=== PATIENT | male | born 1990 | race Caucasian/White ===

== ENCOUNTER 2016-08-06 19:20 | Emergency (ER) | payer OTHER ==
--- NOTE | 2016-08-07 01:32 | ED ORDER SUMMARY ---
..... Patient: DAVINA BENOIT OrderSheet [facility] VisitID: [id number] [place] [address] 26y, M Registration Date/Time: 08/06/2016 ORDER SHEET Weight: 77.1 kg (stated) Allergies: Penicillin, Amoxicillin, Sulfa Antibiotics GENERAL ORDERS: CBC w Diff Urgent (19:51 08/06/2016 Fransisca España) (Ack 19:52 Ernesto [facility] Health Insurance Adjuster) (20:21 DDavis R.N.) CMP Urgent (19:51 08/06/2016 Fransisca [place]aña) (Ack 19:52 Ernesto [facility] Health Insurance Adjuster) (20:21 DDavis R.N.) UA-Culture if indicated Urgent (19:51 08/06/2016 Fransisca [place]) (Ack 19:52 Ernesto [facility] Health Insurance Adjuster) (20:21 DDavis R.N.) Amylase Urgent (19:51 08/06/2016 Fransisca [place]) (Ack 19:52 Ernesto [facility] Health Insurance Adjuster) (20:21 DDavis R.N.) Lipase Urgent (19:51 08/06/2016 Fransisca [place]) (Ack 19:52 Ernesto [facility] Health Insurance Adjuster) (20:21 DDavis R.N.) Urine Drug Screen Urgent (19:51 08/06/2016 Fransisca [place]) (Ack 19:52 Ernesto ER Health Insurance Adjuster) (20:21 DDavis R.N.) Ethyl Alcohol Urgent (19:51 08/06/2016 Fransisca [place]) (Ack 19:52 Ernesto [facility] Health Insurance Adjuster) (20:21 DDavis R.N.) MEDICATION ORDERS: GI Cocktail WHITE PO 30 mL with Lidocaine Viscous Mouth/Throat 15 mL, Maalox Plus Oral 15 mL (NOW) (21:19 08/06/2016 Fransisca [place]) (21:22 DDavis R.N.) IV FLUIDS: IV NS : initial bolus none -, then 1000 mL/hr for X1 (NOW) (19:50 08/06/2016 Fransisca [place]) (Ack 19:52 Mike RShahidN.) (20:20 DDavis R.N.) Zofran IV 4 mg (NOW) (19:50 08/06/2016 Fransisca [place]) (Ack 19:52 Mike Fleming.N.) (20:20 DDscott R.N.) Famotidine IV 20 mg/50mL (NOW) (19:51 08/06/2016 Fransisca Esp[place]) (Ack 19:52 Mike Fleming.N.) (20:21 Adarsh R.N.) ORDER SHEET NOTES: [Electronically signed by Simon Torrez R.N. (01:52 08/07/2016)] [Electronically signed by Chda Ambrocio MD (21:59 08/07/2016)] [Electronically locked/signed by Simon Torrez R.N. (:52 08/07/2016)]
--- NOTE | 2016-08-07 01:32 | ED CLINICAL REPORT ---
Clinical Report - Physicians/Mid Levels [facility] [address] [place] [address] 08/06/2016 19:21 Patient: DAVINA BENOIT Time Seen: 19:27; initial patient contact. Arrived- By private vehicle. Historian- patient. HISTORY OF PRESENT ILLNESS Chief Complaint: ABDOMINAL PAIN. This started today and is still present and worsening. It was abrupt in onset and has been constant. At its maximum, severity described as moderate. When seen in the E.D., severity described as moderate. Modifying factors. Not worsened by anything. Not relieved by anything. No radiation. It is described as located in the epigastric area. The patient has had nausea, loss of appetite, vomiting and diarrhea. Similar symptoms previously: None. Recent medical care: Not recently seen/assessed. REVIEW OF SYSTEMS No constipation, black stools, bloody stools, fever or chills. All systems otherwise negative, except as recorded above. PAST HISTORY Hepatitis. Surgeries: No history of previous surgery. Additional Surgeries: no known surgeries. Medications: None. Allergies: Amoxicillin. Penicillin. Sulfa Antibiotics. SOCIAL HISTORY Current every day smoker. Occasional alcohol use. History of heavy IV drug use: heroin, methamphetamines. ADDITIONAL NOTES The nursing notes have been reviewed. PHYSICAL EXAM Vital Signs: 08/06/2016 19:27 BP: 130/79. HR: 119. RR: 24. O2 saturation: 100%. Temp: 98 F. Pain level now: 9/10. Have been reviewed. Blood pressure normal. Tachycardic. Tachypneic. Temperature normal. Appearance: Alert. Oriented X3. Appears to be in pain. Eyes: Eyes normal inspection. ENT: Dry mucous membranes present. CVS: Tachycardia. Heart sounds normal. Rhythm normal. Respiratory: No respiratory distress. Breath sounds normal. Abdomen: Soft. Moderate tenderness in the epigastric area with guarding present. No rebound tenderness or Gutierrez's sign present. Bowel sounds normal. No organomegaly. No mass. Back: Normal inspection. Skin: Skin warm and dry. Normal skin color. No rash. Extremities: No lower extremity edema. Neuro: Oriented X 3. LABS, X-RAYS, AND EKG Laboratory Tests: UA-Culture if indicated: (DIANNE: 08/06/2016 20:08) ( [facility] [place] 08/06/2016 20:37) Final results Test Result Flag Units (Reference) URINE COLOR YELLOW URINE APPEARANCE CLEAR URINE GLUCOSE NEGATIVE (NEGATIVE) URINE BILIRUBIN NEGATIVE (NEGATIVE) URINE KETONE NEGATIVE (NEGATIVE) URINE SPECIFIC GRAVITY 1.020 (1.010-1.030) URINE PH 6.0 (5.0-8.0) URINE PROTEIN NEGATIVE (NEGATIVE) URINE UROBILINOGEN >=8.0 EU/dL (0.2-1.0) URINE NITRITE NEGATIVE (NEGATIVE) URINE BLOOD NEGATIVE (NEGATIVE) URINE LEUK ESTERASE NEGATIVE (NEGATIVE) URINE RBC NONE SEEN rbc/hpf (0-1) URINE WBC RARE wbc/hpf (0-1) URINE EPITHELIAL CELLS RARE EPI/hpf (0-5) URINE BACTERIA NONE SEEN (NONE SEEN) URINE COMMENT CULT NOT INDICATED URINE CULTURES ARE SET-UP BASED ON THE FOLLOWING CRITERIA:POSITIVE NITRITEPOSITIVE LEUKOCYTE ESTERASEGREATER THAN 10 WHITE BLOOD CELLSMODERATE (2+) OR GREATER BACTERIA CBC w Diff: (DIANNE: 08/06/2016 20:08) ( [facility] 08/06/2016 20:30) Final results Test Result Flag Units (Reference) WHITE BLOOD COUNT 8.1 K/uL (4.5-11.5) RED BLOOD COUNT 4.64 M/uL (4.50-5.90) HEMOGLOBIN 14.5 gm/dL (13.5-17.5) HEMATOCRIT 41.2 % (41.0-53.0) MEAN CELL VOLUME 89 fL (80-100) MEAN CORPUSCULAR HGB 31 pg (26-34) MEAN CORPUSCULAR HGB CONC 35 g/dL (31-37) RED CELL DISTRIBUTION WIDTH 12.7 % (11.6-14.8) PLATELET COUNT 240 K/uL (150-400) NEUTROPHIL % 60.3 % (50-75) LYMPH % 28.9 % (25-40) MONO % 9.1 % (3-14) EOSINOPHIL % 1.5 % (0-4) BASOPHIL % 0.2 % (0-2) Ethyl Alcohol: (DIANNE: 08/06/2016 20:08) ( [facility] 08/06/2016 20:54) Final results Test Result Flag Units (Reference) ETHYL ALCOHOL <3 L mg/dL (3-10) Urine Drug Screen: (DIANNE: 08/06/2016 20:08) ( [facility] [place] 08/06/2016 21:09) Final results Test Result Flag Units (Reference) AMPHETAMINE/METHAMPHETAMINE POSITIVE H (NEGATIVE) BARBITURATE NEGATIVE (NEGATIVE) BENZODIAZEPINE NEGATIVE (NEGATIVE) CANNABINOID NEGATIVE (NEGATIVE) COCAINE NEGATIVE (NEGATIVE) ECSTASY NEGATIVE (NEGATIVE) METHADONE NEGATIVE (NEGATIVE) OPIATE POSITIVE H (NEGATIVE) The urine drug screen is a qualitative screening test fordrug overdose and abuse. All screen results should beconsidered as presumptive.Drugs screened for are as follows:BenzodiazepinesCocaineAmphetamines/MetamphetaminesTHC (Tetrahydrocannabinol)OpiatesBarbituratesEcstasyMethadonePositive results are unconfirmed. For confirmation, notifythe lab for the specimen to be sent to the reference lab.All confirmations must be performed by a differentmethodology.The ingestion of natural herbal and plant productscontaining Ephedra/Ephedra metabolites can produce in urineone or more substances capable of cross reacting withamphetamine/methamphetamine immunoassays. These testsprovide a preliminary result only. A more specificalternative chemical method must be used to obtain aconfirmed analytical result. CMP: (DIANNE: 08/06/2016 20:08) ( [facility] [place] 08/06/2016 21:09) Final results Test Result Flag Units (Reference) GLUCOSE 114 H mg/dL (70-110) BUN 22 H mg/dL (7-18) CREATININE 1.6 H mg/dL (0.6-1.3) Estimated GFR 56.26 mL/min Estimated GFR- >60 mL/min Note: Persistent reduction over 3 months in eGFR<60 mL/min/1.73 m2 defines CKD. Patients with eGFR values>=60 mL/min/1.73 m2 may also have CKD if evidence ofpersistent proteinuria. Additional information may be foundat www.kidney.org. SODIUM 143 mmol/L (136-145) POTASSIUM 3.6 mmol/L (3.5-5.1) CHLORIDE 107 mmol/L (98-107) CARBON DIOXIDE 27 mmol/L (21-32) CALCIUM 8.9 mg/dL (8.5-10.1) TOTAL PROTEIN 7.4 g/dL (6.4-8.2) ALBUMIN 3.9 g/dL (3.3-5.0) BILIRUBIN, TOTAL 1.1 H mg/dL (0.0-1.0) ALKALINE PHOSPHATASE 82 U/L (46-116) AST (SGOT) 51 H U/L (15-37) ALT (SGPT) 75 U/L (12-78) LIPASE 132 U/L (73-393) AMYLASE 42 U/L (25-115) . PROGRESS AND PROCEDURES Course of Care: Physical exam findings are improved. Symptoms better. Zofran 4 mg IVP given. Famotidine 20mg IVPB given. 01:30 08/07/16. Dr. Bautista and I discussed the patient's history and examination findings and the results of his studies at change of shift. I subsequently reviewed the patient's history with him and examined him and my findings were consistent with those noted by Dr. Bautista. I subsequently discussed the case with the mental health team. We spoke with the patient together as well. He currently denies any suicidal ideation. He does state that he is discouraged as that every time he departs rehabilitation for heroin he start using again. He has resources in [place] and hopes to be placed in a Suboxone program there. He would like to be discharged. - MW. Patient/family counseled. Old medical records ordered. Old records unavailable. Disposition: Discharged. Condition: stable. CLINICAL IMPRESSION Gastroenteritis. Depression. Substance abuse- heroin, methamphetamines. INSTRUCTIONS Drink plenty of fluids. Warnings: Further evaluation is necessary. GENERAL WARNINGS: Return or contact your physician immediately if your condition worsens or changes unexpectedly, if not improving as expected, or if other problems arise. Follow-up: Follow up with your doctor tomorrow. Call for the next available appointment. Understanding of the discharge instructions verbalized by patient. (Electronically signed by Chad Ambrocio MD 08/07/2016 21:59)
--- NOTE | 2016-08-07 01:32 | ED CLINICAL REPORT ---
Clinical Report - Physicians/Mid Levels [facility] [address] [place] [address] 08/06/2016 19:21 Patient: DAVINA BENOIT Time Seen: 19:27; initial patient contact. Arrived- By private vehicle. Historian- patient. HISTORY OF PRESENT ILLNESS Chief Complaint: ABDOMINAL PAIN. This started today and is still present and worsening. It was abrupt in onset and has been constant. At its maximum, severity described as moderate. When seen in the E.D., severity described as moderate. Modifying factors. Not worsened by anything. Not relieved by anything. No radiation. It is described as located in the epigastric area. The patient has had nausea, loss of appetite, vomiting and diarrhea. Similar symptoms previously: None. Recent medical care: Not recently seen/assessed. REVIEW OF SYSTEMS No constipation, black stools, bloody stools, fever or chills. All systems otherwise negative, except as recorded above. PAST HISTORY Hepatitis. Surgeries: No history of previous surgery. Additional Surgeries: no known surgeries. Medications: None. Allergies: Amoxicillin. Penicillin. Sulfa Antibiotics. SOCIAL HISTORY Current every day smoker. Occasional alcohol use. History of heavy IV drug use: heroin, methamphetamines. ADDITIONAL NOTES The nursing notes have been reviewed. PHYSICAL EXAM Vital Signs: 08/06/2016 19:27 BP: 130/79. HR: 119. RR: 24. O2 saturation: 100%. Temp: 98 F. Pain level now: 9/10. Have been reviewed. Blood pressure normal. Tachycardic. Tachypneic. Temperature normal. Appearance: Alert. Oriented X3. Appears to be in pain. Eyes: Eyes normal inspection. ENT: Dry mucous membranes present. CVS: Tachycardia. Heart sounds normal. Rhythm normal. Respiratory: No respiratory distress. Breath sounds normal. Abdomen: Soft. Moderate tenderness in the epigastric area with guarding present. No rebound tenderness or Gutierrez's sign present. Bowel sounds normal. No organomegaly. No mass. Back: Normal inspection. Skin: Skin warm and dry. Normal skin color. No rash. Extremities: No lower extremity edema. Neuro: Oriented X 3. LABS, X-RAYS, AND EKG Laboratory Tests: UA-Culture if indicated: (DIANNE: 08/06/2016 20:08) ( [facility] [place]/06[place] 20:37) Final results Test Result Flag Units (Reference) URINE COLOR YELLOW URINE APPEARANCE CLEAR URINE GLUCOSE NEGATIVE (NEGATIVE) URINE BILIRUBIN NEGATIVE (NEGATIVE) URINE KETONE NEGATIVE (NEGATIVE) URINE SPECIFIC GRAVITY 1.020 (1.010-1.030) URINE PH 6.0 (5.0-8.0) URINE PROTEIN NEGATIVE (NEGATIVE) URINE UROBILINOGEN >=8.0 EU/dL (0.2-1.0) URINE NITRITE NEGATIVE (NEGATIVE) URINE BLOOD NEGATIVE (NEGATIVE) URINE LEUK ESTERASE NEGATIVE (NEGATIVE) URINE RBC NONE SEEN rbc/hpf (0-1) URINE WBC RARE wbc/hpf (0-1) URINE EPITHELIAL CELLS RARE EPI/hpf (0-5) URINE BACTERIA NONE SEEN (NONE SEEN) URINE COMMENT CULT NOT INDICATED URINE CULTURES ARE SET-UP BASED ON THE FOLLOWING CRITERIA:POSITIVE NITRITEPOSITIVE LEUKOCYTE ESTERASEGREATER THAN 10 WHITE BLOOD CELLSMODERATE (2+) OR GREATER BACTERIA CBC w Diff: (DIANNE: 08/06/2016 20:08) ( [facility] 08/06/2016 20:30) Final results Test Result Flag Units (Reference) WHITE BLOOD COUNT 8.1 K/uL (4.5-11.5) RED BLOOD COUNT 4.64 M/uL (4.50-5.90) HEMOGLOBIN 14.5 gm/dL (13.5-17.5) HEMATOCRIT 41.2 % (41.0-53.0) MEAN CELL VOLUME 89 fL (80-100) MEAN CORPUSCULAR HGB 31 pg (26-34) MEAN CORPUSCULAR HGB CONC 35 g/dL (31-37) RED CELL DISTRIBUTION WIDTH 12.7 % (11.6-14.8) PLATELET COUNT 240 K/uL (150-400) NEUTROPHIL % 60.3 % (50-75) LYMPH % 28.9 % (25-40) MONO % 9.1 % (3-14) EOSINOPHIL % 1.5 % (0-4) BASOPHIL % 0.2 % (0-2) Ethyl Alcohol: (DIANNE: 08/06/2016 20:08) ( [facility] 08/06/2016 20:54) Final results Test Result Flag Units (Reference) ETHYL ALCOHOL <3 L mg/dL (3-10) Urine Drug Screen: (DIANNE: 08/06/2016 20:08) ( [facility] 08/06/2016 21:09) Final results Test Result Flag Units (Reference) AMPHETAMINE/METHAMPHETAMINE POSITIVE H (NEGATIVE) BARBITURATE NEGATIVE (NEGATIVE) BENZODIAZEPINE NEGATIVE (NEGATIVE) CANNABINOID NEGATIVE (NEGATIVE) COCAINE NEGATIVE (NEGATIVE) ECSTASY NEGATIVE (NEGATIVE) METHADONE NEGATIVE (NEGATIVE) OPIATE POSITIVE H (NEGATIVE) The urine drug screen is a qualitative screening test fordrug overdose and abuse. All screen results should beconsidered as presumptive.Drugs screened for are as follows:BenzodiazepinesCocaineAmphetamines/MetamphetaminesTHC (Tetrahydrocannabinol)OpiatesBarbituratesEcstasyMethadonePositive results are unconfirmed. For confirmation, notifythe lab for the specimen to be sent to the reference lab.All confirmations must be performed by a differentmethodology.The ingestion of natural herbal and plant productscontaining Ephedra/Ephedra metabolites can produce in urineone or more substances capable of cross reacting withamphetamine/methamphetamine immunoassays. These testsprovide a preliminary result only. A more specificalternative chemical method must be used to obtain aconfirmed analytical result. CMP: (DIANNE: 08/06/2016 20:08) ( [facility] 08/06/2016 21:09) Final results Test Result Flag Units (Reference) GLUCOSE 114 H mg/dL (70-110) BUN 22 H mg/dL (7-18) CREATININE 1.6 H mg/dL (0.6-1.3) Estimated GFR 56.26 mL/min Estimated GFR- >60 mL/min Note: Persistent reduction over 3 months in eGFR<60 mL/min/1.73 m2 defines CKD. Patients with eGFR values>=60 mL/min/1.73 m2 may also have CKD if evidence ofpersistent proteinuria. Additional information may be foundat www.kidney.org. SODIUM 143 mmol/L (136-145) POTASSIUM 3.6 mmol/L (3.5-5.1) CHLORIDE 107 mmol/L (98-107) CARBON DIOXIDE 27 mmol/L (21-32) CALCIUM 8.9 mg/dL (8.5-10.1) TOTAL PROTEIN 7.4 g/dL (6.4-8.2) ALBUMIN 3.9 g/dL (3.3-5.0) BILIRUBIN, TOTAL 1.1 H mg/dL (0.0-1.0) ALKALINE PHOSPHATASE 82 U/L (46-116) AST (SGOT) 51 H U/L (15-37) ALT (SGPT) 75 U/L (12-78) LIPASE 132 U/L (73-393) AMYLASE 42 U/L (25-115) . PROGRESS AND PROCEDURES Course of Care: Physical exam findings are improved. Symptoms better. Zofran 4 mg IVP given. Famotidine 20mg IVPB given. 01:30 08/07/16. Dr. Bautista and I discussed the patient's history and examination findings and the results of his studies at change of shift. I subsequently reviewed the patient's history with him and examined him and my findings were consistent with those noted by Dr. Bautista. I subsequently discussed the case with the mental health team. We spoke with the patient together as well. He currently denies any suicidal ideation. He does state that he is discouraged as that every time he departs rehabilitation for heroin he start using again. He has resources in [place] and hopes to be placed in a Suboxone program there. He would like to be discharged. - MW. Patient/family counseled. Old medical records ordered. Old records unavailable. Disposition: Discharged. Condition: stable. CLINICAL IMPRESSION Gastroenteritis. Depression. Substance abuse- heroin, methamphetamines. INSTRUCTIONS Drink plenty of fluids. Warnings: Further evaluation is necessary. GENERAL WARNINGS: Return or contact your physician immediately if your condition worsens or changes unexpectedly, if not improving as expected, or if other problems arise. Follow-up: Follow up with your doctor tomorrow. Call for the next available appointment. Understanding of the discharge instructions verbalized by patient. (Electronically signed by Chad Ambrocio MD 08/07/2016 21:59)
--- NOTE | 2016-08-07 01:32 | ED ORDER SUMMARY ---
..... Patient: DAVINA BENOIT OrderSheet [facility] VisitID: [id number] [place] [address] 26y, M Registration Date/Time: 08/06/2016 ORDER SHEET Weight: 77.1 kg (stated) Allergies: Penicillin, Amoxicillin, Sulfa Antibiotics GENERAL ORDERS: CBC w Diff Urgent (19:51 08/06/2016 Fransisca España) (Ack 19:52 Ernesto ER Frame Changer) (20:21 DDavis R.N.) CMP Urgent (19:51 08/06/2016 Fransisca España) (Ack 19:52 Ernesto ER Frame Changer) (20:21 DDavis R.N.) UA-Culture if indicated Urgent (19:51 08/06/2016 Fransisca España) (Ack 19:52 Ernesto ER Frame Changer) (20:21 DDavis R.N.) Amylase Urgent (19:51 08/06/2016 Fransisca España) (Ack 19:52 Ernesto ER Frame Changer) (20:21 DDavis R.N.) Lipase Urgent (19:51 08/06/2016 Fransisca [place]) (Ack 19:52 Ernesto ER Frame Changer) (20:21 DDavis R.N.) Urine Drug Screen Urgent (19:51 08/06/2016 Fransisca Esp[place]) (Ack 19:52 Ernesto ER Frame Changer) (20:21 DDavis R.N.) Ethyl Alcohol Urgent (19:51 08/06/2016 Fransisca España) (Ack 19:52 Ernesto ER Frame Changer) (20:21 DDavis R.N.) MEDICATION ORDERS: GI Cocktail WHITE PO 30 mL with Lidocaine Viscous Mouth/Throat 15 mL, Maalox Plus Oral 15 mL (NOW) (21:19 08/06/2016 Fransisca España) (21:22 DDavis R.N.) IV FLUIDS: IV NS : initial bolus none -, then 1000 mL/hr for X1 (NOW) (19:50 08/06/2016 Fransisca España) (Ack 19:52 Mike RShahidN.) (20:20 DDavis R.N.) Zofran IV 4 mg (NOW) (19:50 08/06/2016 Fransisca España) (Ack 19:52 Mike Fleming.N.) (20:20 DDscott R.N.) Famotidine IV 20 mg/50mL (NOW) (19:51 08/06/2016 Fransisca España) (Ack 19:52 Mike Fleming.N.) (20:21 Adarsh R.N.) ORDER SHEET NOTES: [Electronically signed by Simon Torrez R.N. (01:52 08/07/2016)] [Electronically signed by Chad Ambrocio MD (21:59 08/07/2016)] [Electronically locked/signed by Simon Torrez R.N. (:52 08/07/2016)]
--- NOTE | 2016-08-07 01:32 | ED NURSING NOTES ---
Clinical Report - Nurses [facility] [place] [address] 08/06/2016 19:21 Patient: DAVINA BENOIT TRIAGE Triage time 19:27. Acuity: LEVEL 2. Chief Complaint: ABDOMINAL PAIN, NAUSEA and DIARRHEA. Alert. YI COMA SCORE: Yi Coma Scale: 15- eyes open spontaneously (4); best verbal response- oriented x 4 (5); best motor response- obeys commands (6). --19:35 Simon Torrez R.N. 19:27 08/06/16. BP: 130/79 taken on the right arm, while sitting. HR: 119. RR: 24 (regular). O2 saturation: 100% on room air. Temp: 98 F (oral). Pain level now: 11/17. --19:35 Simon Torrez R.N. Weight: 77.1 kg stated. Height/Length: 68 inches Per Patient. BMI: 25.9. --19:27 Simon Torrez R.N. Medications None. --19:28 Simon Torrez R.N. Allergies Penicillin. --19:28 Simon Torrez R.N. Amoxicillin. --19:28 Simon Torrez R.N. Sulfa Antibiotics. --19:28 Simon Torrez R.N. History Arrived by private vehicle, and unaccompanied. This started just prior to arrival. 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 SOCIAL HX: Heavy tobacco smoker (cigarette)- 1 pack per day. Occasional alcohol use. History of heavy IV drug use: heroin, methamphetamines. Recently used drugs today. ( denies being abused. When asked if he's having thoughts of hurting himself, he states "To be honest, I have today." "if I would, I would overdose."). SELF HARM ASSESSMENT: A self harm assessment was performed. The patient answered "yes" to the question "Do you have thoughts of harming or killing yourself?" and "Have you ever tried to hurt yourself before today?" and "no" to the question "Are you here because you tried to hurt yourself?" and "Have you recently had thoughts about harming or killing others?". The patient reports their behavior. FALL RISK ASSESSMENT: Fall risk assessment completed. No fall risk identified. NUTRITIONAL RISK ASSESSMENT: The nutritional risk assessment revealed no deficiencies. FUNCTIONAL ASSESSMENT: Functional assessment: no impairments noted. LEARNING NEEDS ASSESSMENT: The learning needs assessment revealed no barriers. --19:35 Simon Torrez R.N. PROBLEMS: Hepatitis. --19:29 Simon Torrez R.N. ADDITIONAL SURGERIES: no known surgeries. Interventions ID band on patient. To treatment room. --19:35 Simon Torrez R.N. PHYSICAL ASSESSMENT Ambulatory to room. GENERAL / NEURO / PSYCH: Alert. Oriented X 4. Appears in pain and anxious. RESPIRATORY: Respirations not labored. CVS: Capillary refill less than 2 seconds. GI / : Abdomen soft. Abdominal tenderness diffusely. SKIN: Skin is warm and dry. --20:18 Simon Torrez R.N. NURSING PROGRESS NOTES Patient gowned. Head of bed elevated. Reassurance given. Two patient identifiers checked. Call light placed in reach. Side rails up x 1. Bed placed in lowest position. Brakes of bed on. Patient ready for evaluation- chart flagged. ( SI precautions, belongings in locker, patient in view/line of sight of nursing station. patient in yellow gown. Patient current calm, watching television). --20:19 Simon Torrez R.N. 20:10 08/06/2016 Site #1 started via IV in the left antecubital space with an 20g angiocath, with aseptic technique and good blood return; one attempt. Blood drawn: rainbow set. Labeled in the presence of the patient and sent to the lab. Saline lock flushed with 10 mL saline. --20:20 Simon Torrez R.N. 20:15 08/06/2016 Started 20 mg of Famotidine IVPB in bag #1 50 mL; at 100 mL/hr over 30 minute(s) via site #1 via IV pump. Allergies verified and confirmed 5 rights. IV patency established. IV site checked: no pain, redness, or swelling. IV flushed thoroughly pre- and post-medication administration. --20:21 Simon Torrez R.N. 20:19 08/06/2016 Started bag #1 1000 mL IV Fluids IV NS (Saline); at 1000 mL/hr over 1 hour(s) via site #1. Allergies verified and confirmed 5 rights. IV patency established. IV site checked: no pain, redness, or swelling. IV flushed thoroughly pre- and post-medication administration. Completed per protocol. --20:20 Simon Torrez R.N. 20:20 08/06/2016 Zofran (Ondansetron HCl) IVP 4 mg given. via site #1. Allergies verified and confirmed 5 rights. IV patency established. IV site checked: no pain, redness, or swelling. IV flushed thoroughly pre- and post-medication administration. IVP given by RN. --20:20 Simon Torrez R.N. ( Patient sitting in bed watching television, appears slightly anxious). --20:43 Simon Torrez R.N. ( Note: Patient's belongings have been stored in ER locker #1.). --21:15 Simon Torrez R.N. 21:22 08/06/2016 GI COCKTAIL WHITE (Simethicone) PO Oral Suspension 30 mL given. Allergies verified and confirmed 5 rights. --21:22 Simon Torrez R.N. ( Patient states that there is no change in his pain after the GI cocktail. Dr. Bautista present with the patient and notified). --21:30 Simon Trorez R.N. ( Patient resting in bed. appears calm.). --22:24 Simon Torrez R.N. ( 2200: Patient resting in bed, appears calm.). --22:25 Simon Torrez R.N. ( 2300: Patient appears calm, resting in bed.). --23:23 Simon Torrez R.N. ( Patient appears calm, resting in bed currently). --23:24 Simon Torrez R.N. ( Jamir with the PAT (Psych asphalt distributor tender) team with visiting with the patient currently. Patient is sitting in bed, conversing.). --00:17 Simon Torrez R.N. ( Dr. Ambrocio with patient). --01:06 Simon Torrez R.N. ( Patient requested food. I gave him cheese, crackers, juice, jello, and water. (We are out of sandwiches currently).). --01:15 Simon Torrez R.N. 21:19 08/06/2016 IV Fluids IV NS Discontinued: bag #1 completed. Total amount infused: 1000 mL. IV patency established. IV site checked: no pain, redness, or swelling. IV flushed thoroughly. --01:51 Simon Torrez R.N. DISPOSITION / DISCHARGE 01:49 08/07/2016 Site #1 removed upon discharge. Manual pressure and bandage applied. --01:49 Simon Torrez R.N. Departure time: 01:51. Condition at departure: stable. No learning barriers present. Discharge instructions provided and reviewed with the patient. Reviewed warnings. Treatments reviewed. Reviewed referrals for followup. Patient verbalized understanding. Written instructions provided in [place]. The patient was discharged home and unaccompanied at time of discharge. He left the Emergency Department ambulatory and via (ambulatory). Driving (n/a). --01:51 Simon Torrez R.N. 01:49 08/07/16. BP: 116/67 taken on the right arm, while sitting. HR: 84. RR: 18 (regular and unlabored). O2 saturation: 97% on room air. Pain level now: 10. --01:51 Simon Torrez R.N. Locked/Released at 08/07/2016 1:52 by Simon Torrez R.N.
--- NOTE | 2016-08-07 22:00 | ED DISCHARGE INSTRUCTIONS ---
Patient: DAVINA BENOIT General Instructions [facility] VisitID: [id number] [place] [address] 26y, M Registration Date/Time: 08/06/2016 Gastroenteritis. Depression. Substance abuse- heroin, methamphetamines. INSTRUCTIONS Drink plenty of fluids. Warnings: Further evaluation is necessary. GENERAL WARNINGS: Return or contact your physician immediately if your condition worsens or changes unexpectedly, if not improving as expected, or if other problems arise. Follow-up: Follow up with your doctor tomorrow. Call for the next available appointment. Understanding of the discharge instructions verbalized by patient. ADDITIONAL INFORMATION Viral Gastroenteritis (6Yr-Adult) Gastroenteritis is another name for thestomach flu.It is most often caused by a virus that affects the stomach and intestinal tract. Symptoms include stomach cramping and fever, vomiting and/or diarrhea, and can last from 2 to 7 days. The danger from repeated vomiting or diarrhea is dehydration. This is the loss of too much water and minerals from the body. When this occurs, body fluids must be replaced. Antibiotics are not effective for this illness, but simple home treatment will be helpful. Home Care If symptoms are severe, rest at home for the next 24 hours. Avoid tobacco, caffeine, and alcohol use, which can worsen symptoms. Acetaminophen (Tylenol) or ibuprofen (Motrin, Advil) may be usedfor fever or pain unless another medication was prescribed. NOTE: If you have chronic liver or kidney disease or ever had a stomach ulcer or GI bleeding, talk with your doctor before using these medicines. Aspirin should never be used in anyone under 18 years of age who is ill with a fever. It may cause severe liver damage. If medicines for diarrhea or vomiting were prescribed, be sure they are takenonly as directed. If vomiting, drink small amounts of clear fluids (such as water, sports drinks, clear sodas) at frequent intervals to prevent dehydration. Start with 1 to 2 tablespoons every 10 minutes. Once vomiting stops, follow these guidelines: During The First 12 To 24 Hours follow the diet below: Beverages: Sport drinks like Gatorade, soft drinks without caffeine; david racheal, mineral water (plain or flavored), decaffeinated tea and coffee. Soups: Clear broth, consomm and bouillon Desserts: Plain gelatin (Jell-O), Popsicles and fruit juice bars. During The Next 24 Hours you may add the following to the above: Hot cereal, plain toast, bread, rolls, crackers Plain noodles, rice, mashed potatoes, chicken noodle or rice soup Unsweetened canned fruit (avoid pineapple), bananas Limit fat intake to less than 15 grams per day by avoiding margarine, butter, oils, mayonnaise, sauces, gravies, fried foods, peanut butter, meat, poultry, and fish. Limit fiber; avoid raw or cooked vegetables, fresh fruits (except bananas), and bran cereals. Limit caffeine and chocolate. Do not use spices or seasonings except salt. During The Next 24 Hours The patient can gradually resume a normal diet as symptoms lessen. Preventing Spread Hand washing with soap and water is the best way to prevent the spread of viruses. Caregivers should wash their hands before andafter touching the sick person. The sick person, as well as everyone in the family,should wash their hands after using the toilet and before meals. Clean the toilet after each use. People with diarrhea should not prepare food for others. If you are preparing your own foods, wash your hands before and after. Follow Up with your doctor as advised. Call your doctor if you are not improving over the next 2 to 3 days. If a stool (diarrhea) sample was taken, you may call in 2 days (or as directed) for the results. Get Prompt Medical Attention if any of the following occur: Increasing abdominal pain Continued vomiting (unable to keep liquids down) Frequent diarrhea (more than 5 times a day) Blood in vomit or stool (black or red color) Dark urine, reduced urine output, or extreme thirst Weakness, dizziness, fainting Drowsiness, confusion, stiff neck, or seizure Fever of 100.4F (38C) oral or higher, not better with fever medication New rash Depression Depression is one of the most common mental health problems today. It is not just a state of unhappiness or sadness. It is a true disease. The cause seems to be related to a decrease in chemicals that transmit signals in the brain. Having a family history of depression, alcoholism or suicide increases the risk. Chronic illness, chronic pain, migraine headaches and high emotional stress also increase the risk. Depression can cause many different symptoms, such as: -- Loss of appetite -- Over-eating -- Not being able to sleep -- Sleeping too much -- Tiredness not related to physical exertion -- Restlessness or irritability -- Slowness of movement or speech -- Feeling depressed or withdrawn -- Loss of interest in things you once enjoyed -- Difficulty in concentrating, poor memory, have trouble making decisions -- Thoughts of harming or killing oneself, or thoughts that life is not worth living -- Low self-esteem The best treatment for depression is a combination of medicine and psychotherapy. Antidepressant medicines can reduce suffering and can improve the ability to function during the depressed period. Therapy can offer emotional support and help you understand emotional factors that may be causing the depression. Home Care: 1) Be kind to yourself. Make it a point to do things that you enjoy (gardening, walking in nature, going to a movie, etc.). Reward yourself for small successes. 2) Take care of your physical body. Eat a balanced diet (low in saturated fat and high in fruits and vegetables). Establish an exercise plan at least 3 times a week for 30 minutes. Even mild-moderate exercise (like brisk walking) can make you feel better. 3) Avoid alcohol, which can make depression worse. Follow-Up with your doctor as advised. It is important to keep in contact with a health care provider until your symptoms begin to improve. Get Prompt Medical Attention if any of the following occur: -- Feeling extreme depression, fear, anxiety, or anger toward yourself or others -- Feeling out of control -- Feeling that you may try to harm yourself or another -- Hearing voices that others do not hear -- Seeing things that others do not see -- Cant sleep or eat for 3 days in a row You have been given the following additional information: Gastroenteritis, Viral (6Y-Adult) Depression (Electronically signed by Chad Ambrocio MD 08/07/2016 21:59)
--- NOTE | 2016-08-07 22:00 | ED MAR SUMMARY ---
..... Medication Administration Record [facility] [address] [place] [address] Patient: DAVINA BENOIT Visit ID: [id number] 26y, M Weight: 77.1 kg Height/Length: 68 in BMI: 25.9 ALLERGIES: Sulfa Antibiotics, Amoxicillin, Penicillin Start 20:15 08/06/2016 Simon Torrez R.N. Medication Administered: FAMOTIDINE [IVPB], Dose: 20 mg IVPB over 30 minute(s), Rate: 100 mL/hr, Dispensed: 50 mL bag, Site: #1 left AC. Medication Ordered: Famotidine IV 20 mg/50mL (NOW). Start 20:19 08/06/2016 Simon Torrez R.N., Stop 21:19 08/06/2016 Simon Torrez R.N. Medication Administered: IV NS (SALINE), Dose: IV Fluids over 1 hour(s), Rate: 1000 mL/hr, Dispensed: 1000 mL bag, Site: #1 left AC. Medication Ordered: IV NS : initial bolus none -, then 1000 mL/hr for X1 (NOW). Given 20:20 08/06/2016 Simon Torrez R.N. Medication Administered: ZOFRAN [IVP] (ONDANSETRON HCL), Dose: 4 mg IVP, Site: #1 left AC. Medication Ordered: Zofran IV 4 mg (NOW). Given 21:22 08/06/2016 Simon Torrez R.N. Medication Administered: GI COCKTAIL WHITE [PO] (SIMETHICONE), Dose: 30 mL Oral Suspension PO. Medication Ordered: GI Cocktail WHITE PO 30 mL with Lidocaine Viscous Mouth/Throat 15 mL, Maalox Plus Oral 15 mL (NOW).
--- NOTE | 2016-08-07 22:00 | ED MED RECONCILIATION SUMMARY ---
Patient: DAVINA BENOIT Medication Reconciliation Report [facility] VisitID: [id number] [place] [address] 26y, M Registration Date/Time: 08/06/2016 Weight: 77.1 kg Height/Length: 68 in. BMI: 25.9 ALLERGIES: Amoxicillin, Penicillin, Sulfa Antibiotics The patient's Home Medications are listed below: NONE. The source(s) of the original Home Medication information: Not obtained. The following Medications were given to the patient in the Emergency Department: IV NS IV Fluids bolus 0, then 1000 mL/hr, administered: 08/06/2016 8:19:00 PM Zofran [IVP] IVP 4 mg, administered: 08/06/2016 8:20:00 PM Famotidine [IVPB] IVPB bolus 0, then 20 mg 100 mL/hr, administered: 08/06/2016 8:15:00 PM GI COCKTAIL WHITE [PO] PO 30 mL, administered: 08/06/2016 9:22:00 PM The following Medications were prescribed to the patient: None.
--- NOTE | 2016-08-07 22:00 | ED MED RECONCILIATION SUMMARY ---
Patient: DAVINA BENOIT Medication Reconciliation Report [facility] VisitID: [id number] [place] [address] 26y, M Registration Date/Time: 08/06/2016 Weight: 77.1 kg Height/Length: 68 in. BMI: 25.9 ALLERGIES: Amoxicillin, Penicillin, Sulfa Antibiotics The patient's Home Medications are listed below: NONE. The source(s) of the original Home Medication information: Not obtained. The following Medications were given to the patient in the Emergency Department: IV NS IV Fluids bolus 0, then 1000 mL/hr, administered: 08/06/2016 8:19:00 PM Zofran [IVP] IVP 4 mg, administered: 08/06/2016 8:20:00 PM Famotidine [IVPB] IVPB bolus 0, then 20 mg 100 mL/hr, administered: 08/06/2016 8:15:00 PM GI COCKTAIL WHITE [PO] PO 30 mL, administered: 08/06/2016 9:22:00 PM The following Medications were prescribed to the patient: None.
--- NOTE | 2016-08-07 22:00 | ED MAR SUMMARY ---
..... Medication Administration Record [facility] [address] [place] [address] Patient: DAVINA BENOIT Visit ID: [id number] 26y, M Weight: 77.1 kg Height/Length: 68 in BMI: 25.9 ALLERGIES: Sulfa Antibiotics, Amoxicillin, Penicillin Start 20:15 08/06/2016 Simon Torrez R.N. Medication Administered: FAMOTIDINE [IVPB], Dose: 20 mg IVPB over 30 minute(s), Rate: 100 mL/hr, Dispensed: 50 mL bag, Site: #1 left AC. Medication Ordered: Famotidine IV 20 mg/50mL (NOW). Start 20:19 08/06/2016 Simon Torrez R.N., Stop 21:19 08/06/2016 Simon Torrez R.N. Medication Administered: IV NS (SALINE), Dose: IV Fluids over 1 hour(s), Rate: 1000 mL/hr, Dispensed: 1000 mL bag, Site: #1 left AC. Medication Ordered: IV NS : initial bolus none -, then 1000 mL/hr for X1 (NOW). Given 20:20 08/06/2016 Simon Torrez R.N. Medication Administered: ZOFRAN [IVP] (ONDANSETRON HCL), Dose: 4 mg IVP, Site: #1 left AC. Medication Ordered: Zofran IV 4 mg (NOW). Given 21:22 08/06/2016 Simon Torrez R.N. Medication Administered: GI COCKTAIL WHITE [PO] (SIMETHICONE), Dose: 30 mL Oral Suspension PO. Medication Ordered: GI Cocktail WHITE PO 30 mL with Lidocaine Viscous Mouth/Throat 15 mL, Maalox Plus Oral 15 mL (NOW).
== END 2016-08-07 01:52 | disposition home or self-care (01) ==
LOC: ED SRH 19:20
DX: K52.9 Noninfective gastroenteritis and colitis, unspecified (principal); F32.9 Major depressive disorder, single episode, unspecified; F11.10 Opioid abuse, uncomplicated; F15.10 Other stimulant abuse, uncomplicated; F17.200 Nicotine dependence, unspecified, uncomplicated; Z88.0 Allergy status to penicillin; Z88.2 Allergy status to sulfonamides
CPT/HCPCS: 90004; 90100; 92010; 92235; 92530; 92760; 92761; 92762; 92763; 92764; 92765; 92766; 92767; 95059